=== PATIENT | female | born 1995 | race Asian ===

== ENCOUNTER 2023-11-24 06:28 | Outpatient (REF) | payer OTHER, SELFPAY | END 2023-11-24 06:29 | disposition home or self-care (01) | LOC: HO.UMASIMG 06:28 | PROVIDERS: Visit Provider Nurse Practitioner Women's Health | DX: Z13.89 Encounter for screening for other disorder (principal) ==

== ENCOUNTER 2023-12-01 06:35 | Outpatient (REF) | payer OTHER, SELFPAY ==
--- NOTE | ~2023-12-01 | US_ITS ---
EXAMINATION: US PELVIS CLINICAL INFORMATION: Pain. LMP 11/09/2023. COMPARISON: None available. TECHNIQUE: Ultrasound of the pelvis utilizing transabdominal approach. Patient refused transvaginal examination. FINDINGS: Anteverted uterus with normal morphology measuring 8.6 x 4.2 x 5.5 cm. No uterine mass. Homogeneous endometrium measuring 1.1 cm in thickness. Limited transabdominal examination of the ovaries with overall normal morphology and fairly symmetric size, the right ovary measures 1.8 x 2.1 x 2.4 cm (4.8 mL) and the left ovary measures 2.1 x 2.8 x 2.5 cm (7.8 mL). The flow to the ovaries was not assessed by the program clinician. No adnexal mass. No free fluid. US/US pelvic complete IMPRESSION: Within limitations of transabdominal-only examination, no significant abnormality. Electronically signed by: Leigh Kent MD 12/01/2023 05:54 PM EDT
== END 2023-12-01 06:36 | disposition home or self-care (01) ==
LOC: HO.UMASIMG 06:35
PROVIDERS: Visit Provider Nurse Practitioner Women's Health
DX: R10.2 Pelvic and perineal pain (principal)
CPT/HCPCS: 76856